=== PATIENT | male | born 1975 | race Caucasian/White ===

== ENCOUNTER 2019-10-10 17:02 | Observation (INO) | payer OTHER, SELFPAY ==
--- NOTE | ~2019-10-10 | US_ITS ---
US abdomen limited INDICATION: Right upper quadrant pain PROCEDURE: Realtime right upper abdominal ultrasound. COMPARISON: CT dated 10/10/2019 FINDINGS: The pancreas is normal without focal mass or pancreatic ductal dilation. Liver echotexture is increased, consistent with fatty infiltration. There is normal directional flow in the portal ve in. There is gallbladder wall thickening. No pericholecystic fluid or gallstones. Common bile duct measu res 5.1 mm. No sonographic Mora's sign. IMPRESSION: 1: Mild gallbladder wall thickening, nonspecific. 2: Hepatic steatosis. Reviewed, dictated and finalized at location A.
--- NOTE | ~2019-10-10 | CT_ITS ---
EXAMINATION: CT abdomen pelvis w con EXAM DATE: 10/10/2019 18:13 INDICATION: Nausea vomiting and epigastric pain. TECHNIQUE: Spiral CT of the abdomen and pelvis was performed following intravenous injection of 100 m L Omnipaque 350. Axial, coronal and sagittal images were reviewed. The dose-length product (DLP) fo r this examination was 663.56 mGy-cm. The exposure was tailored according to patient size (auto mA e xposure control), and iterative reconstruction (ASIR) was used as additional dose reduction technique . There is no prior study for comparison. FINDINGS: The liver, spleen, adrenal glands and pancreas are unremarkable. Gallbladder is unremarkab le. No biliary obstruction. Portal and splenic veins are patent. Kidneys enhance symmetrically. T here is no hydronephrosis. The prostate is unremarkable. The bladder is unremarkable. There is no retroperitoneal or pelvic lymphadenopathy. The appendix is normal. The stomach and small bowel are unremarkable. There is expected amount of c olonic stool. No free intraperitoneal gas. The heart is normal in size. There are no pericardial or pleural effusions. The lung bases are unremarkable. The bones are unremarkable. IMPRESSION: 1. No acute intra-abdominal findings. Reviewed, dictated and finalized at location A.
[2019-10-10 17:11] VITALS: BP 150/98; PULSE 91; RESP 18; O2SAT 100
[2019-10-10 17:13] VITALS: BP 150/98; PULSE 92; RESP 21; O2SAT 100
--- NOTE | 2019-10-10 17:34 | ECG_ITS ---
Measurements Intervals [place] Rate: 66 P: 56 SC: 167 QRS: 43 QRSD: 113 T: 38 QT: 390 QTc: 411 Interpretive Statements SINUS RHYTHM INTRAVENTRICULAR CONDUCTION DELAY BORDERLINE ECG Electronically Signed On 10-10-2019 19:33:39 CDT by Alexi Booth D.O.
--- NOTE | 2019-10-10 17:34 | ED.NAVMDI ---
HPI - Nausea/Vomiting/Diarrhea General Chief complaint: Nausea/Vomiting/Diarrhea Stated complaint: N/V ABD PAIN [id number] Time Seen by Provider: 10/10/19 17:10 History of Present Illness HPI Narrative: Patient is a 44-year-old male who presents ER with sudden onset nausea and vomiting. Gradually increasing since 1430 this afternoon. Associated with discomfort in the epigastrium and bilateral upper quadrants. No radiation of pain within the abdomen. No fevers or chills or sweats. No chest pain or dizziness. Had similar symptoms 2 to 3 days ago but not as intense and lasted for very short amount of time. Patient is concerned it could be related to his gallbladder. Has not had biliary colic in the past. No alleviating factors that he is found. Related Data Allergies Allergy/AdvReac Type Severity Reaction Status Date / Time No Known Allergies Allergy Unverified 05/06/19 07:07 Review of Systems Review of Systems: All systems reviewed & are unremarkable except as noted in HPI and below Constitutional: Constitutional: Denies chills, Denies fever(s) and Denies weakness Cardiovascular: Cardiovascular: Denies chest pain and Denies radiating jaw, neck or arm pain Respiratory: Respiratory: Denies cough, Denies dyspnea and Denies wheezing Gastrointestinal: Gastrointestinal: Reports abdominal pain, Denies heartburn, Denies diarrhea, Reports nausea and Reports vomiting Genitourinary: Genitourinary: Denies dysuria and Denies urinary frequency Integumentary/Breasts: Comments: Sweating clammy PMFSH Past Medical History Medical History (Updated 10/10/19 @ 19:16 by Ze Girard MD) Anxiety Hyperlipidemia Surgical History Surgical History (Updated 05/06/19 @ 13:15 by Fiordaliza Farnsworth NP) History of appendectomy (~1989) Social History Social History (Updated 10/10/19 @ 18:15 by Ze Girard MD) Smoking status: Never smoker Gender identity (if verbalized by the patient): Male Exam Narrative: Exam Narrative: GENERAL: Uncomfortable-appearing, well-nourished, and sitting in the bed holding an emesis bag HEAD: Normocephalic, atraumatic. ENT: Mucous membranes moist. CHEST: Clear to auscultation. No respiratory distress. HEART: Regular rate and rhythm. Normal peripheral pulses. ABDOMEN: Soft, mild discomfort in the epigastrium bilateral upper quadrants with palpation but no rebound or guarding, negative Mora's sign, nondistended, normal active bowel sounds. EXTREMITIES: Normal range of motion. No edema. SKIN: Cool, moist, no rash. NEURO: Alert and oriented x3. Course Course Emergency Course: Admit to general surgery. Keep n.p.o. and give fluids and IV pain medication. Will order ultrasound for the morning. Vital Signs Vital signs: Vital Signs Pulse Rate 91 10/10/19 17:11 Respiratory Rate 18 10/10/19 17:11 Blood Pressure 150/98 H 10/10/19 17:11 Pulse Oximetry 100 10/10/19 17:11 Pulse Rate 92 10/10/19 17:13 Respiratory Rate 21 H 10/10/19 17:13 Blood Pressure 150/98 H 10/10/19 17:13 Pulse Oximetry 100 10/10/19 17:13 MDM - Nausea/Vomiting/Diarrhea Lab Data Result diagrams: 10/10/19 17:42 10/10/19 17:42 Labs: Lab Results 10/10/19 10/10/19 10/10/19 Range/Units 17:42 17:42 19:03 WBC 12.7 H (4.5-10.0) K/mm3 RBC 5.17 (4.6-6.20) M/mm3 Hgb 16.1 (14.0-18.0) g/dL Hct 46.0 (42.0-52.0) % MCV 89.0 (80-100) fl MCH 31.1 (26-34) pg MCHC 35.0 (32-36) g/dl RDW 11.9 (11.5-14.5) % Plt Count 340 (150-375) k/mm3 MPV 8.7 (7.4-10.4) fl Immature Gran % (Auto) 0.3 (0-0.5) % Neut % (Auto) 57.8 (45.5-73.1) % Lymph % (Auto) 36.8 (18.3-44.2) % [place]w % (Auto) 4.2 (2.6-8.5) % Eos % (Auto) 0.6 (0-4.4) % Baso % (Auto) 0.3 (0.2-1.2) % Lymph # (Auto) 4.68 H (0.9-3.2) K/mm3 [place]omew # (Auto) 0.5 (0.1-0.6) K/mm3 Eos # (Auto) 0.1 (0-0.3) K/mm3 Baso # (Auto) 0.0 (0.0-0.1) K/mm
[2019-10-10 17:47] LABS: Basophils Percent Auto 0.3 % (0.2-1.2); Eosinophils Absolute Auto 0.1 K/mm3 (0-0.3); Eosinophils Percent Auto 0.6 % (0-4.4); Hemoglobin 16.1 g/dL (14.0-18.0); Immature Granulocyte Absolute 0.04 K/mm3 (0.00-0.031); Immature Granulocyte Percent A 0.3 % (0-0.5); Lymphocytes Absolute Auto 4.68 K/mm3 (0.9-3.2); Lymphocytes Percent Auto 36.8 % (18.3-44.2); Mean Corpuscular Hemoglobin 31.1 pg (26-34); Mean Platelet Volume 8.7 fl (7.4-10.4); Monocytes Absolute Auto 0.5 K/mm3 (0.1-0.6); Monocytes Percent Auto 4.2 % (2.6-8.5); Neutrophils Absolute Auto 7.3 K/mm3 (1.3-6.7); Neutrophils Percent Auto 57.8 % (45.5-73.1); Platelet Count Result 340 k/mm3 (150-375); Red Blood Count 5.17 M/mm3 (4.6-6.20); Red Cell Distribution Width 11.9 % (11.5-14.5); White Blood Count 12.7 K/mm3 (4.5-10.0)
[2019-10-10] MEDS: MORPHINE SULFATE 4 MG/ML INJ IV PUSH ×3 (17:53→20:10)
[2019-10-10] MEDS: SODIUM CHLORIDE 0.9% IV 1,000 ML 999 ML IV CONT (17:53)
[2019-10-10] MEDS: ONDANSETRON INJ 4 MG/2 ML VIAL IV PUSH (17:53)
--- NOTE | 2019-10-10 17:53 | PC.NURSE ---
Keyboard not working in RM 12. Unable to document medication administration in room.
[2019-10-10 17:59] LABS: Alanine Aminotransferase 48 U/L (4-50); Albumin Level 4.9 g/dL (3.5-5.1); Alkaline Phosphatase 105 U/L (38-126); Aspartate Amino Transferase 46 U/L (17-59); Bilirubin,Total 0.3 mg/dL (0.2-1.3); Blood Urea Nitrogen 14 mg/dL (9-20); Calcium 9.8 mg/dL (8.4-10.2); Carbon Dioxide 26 mmol/L (22-30); Chloride 100 mmol/L (98-107); Estimated CRCL calculation 88 ml/min; Estimated Glomerular Filt Rate > 60; Glucose 129 mg/dL (75-110); Lipase 68 U/L (23-300); Potassium 3.8 mmol/L (3.4-5.0); Sodium 137 mmol/L (137-145)
[2019-10-10 18:11] LABS: Troponin I < 0.012 ng/mL (0.000-0.034)
[2019-10-10 19:13] LABS: Add Urine Microscopic? YES; Appearance Urine Clear (Clear); Bilirubin Urine Negative (Negative); Blood Urine Negative (Negative); Color Urine Yellow (Yellow); Glucose Urine UA Negative (Negative); Ketones Urine Trace mg/dL (Negative); Leukocyte Esterase Ur Negative LEU/UL (Negative); Mucus Urine Rare /lpf; Nitrate Urine Negative (Negative); Protein Urine Negative (Negative); RBC Urine 0-2 /hpf (0-2); Urobilinogen Urine Negative mg/dL (<2.0); WBC Urine 0-3 /hpf
[2019-10-10 19:16] LABS: Specific Grav Ur 1.035 (1.001-1.035)
[2019-10-10 19:19] VITALS: BP 145/83; PULSE 75; RESP 30; TEMP 36.8; O2SAT 97
--- NOTE | 2019-10-10 19:23 | PC.NURSE ---
Assumed care of pt at this time. report from DASHAWN Castañeda
[2019-10-10 19:49] VITALS: BP 144/87; PULSE 69; RESP 12; O2SAT 99
[2019-10-10 20:09] VITALS: BP 133/91; PULSE 75; RESP 18; TEMP 36.8; O2SAT 95; BMI 29.0
[2019-10-10] MEDS: SODIUM CHLORIDE 0.9% IV 1,000 ML 125 ML IV CONT (20:09)
--- NOTE | 2019-10-10 20:12 | ADMGEN ---
This patient, Jay Hobson, was admitted to 3 Med Surg Room 320-01. Patient/family oriented to hospital policies and general routines including ID bracelet, bed and alarms, visiting hours, pain management, procedures, bathroom and other care routines, personal items, smoking policy, room service/diet, and visiting hours. Valuables list has been completed. Information on how to activate the Rapid Response Team has been discussed. Patient/Family are encouraged to report perceived risks to care and to ask questions if they do not understand what they are told or what they should do.
[2019-10-10 22:00] VITALS: BP 149/86; PULSE 68; RESP 18; TEMP 37.1; O2SAT 97
[2019-10-11] VITALS (13 sets, daily range): BP systolic 90–150; BP diastolic 52–78; PULSE 67–714; RESP 16–25; TEMP 36.4–37.3; O2SAT 79–100
[2019-10-11] MEDS: SODIUM CHLORIDE 0.9% IV 1,000 ML 125 ML IV CONT (04:11)
--- NOTE | 2019-10-11 09:23 | PC.NURSE ---
Patient to surgery per bed.
--- NOTE | 2019-10-11 10:06 | SUR.PREOP ---
0945- spoke with dr. mansfield and he stated pt does not need a type and screen drawen in pre op area.
[2019-10-11] MEDS: IBUPROFEN IV 800 MG/200 ML 800 MG/200 ML BAG 400 MG IVPB (10:08)
[2019-10-11] MEDS: LACTATED RINGERS 1,000 ML 30 ML IV CONT ×2 (10:08→11:44)
--- NOTE | 2019-10-11 10:28 | WPDANESEPPF ---
Anes - Initial Pre Proc Eval Procedure: Operation Date: 10/11/19 16:15 Proposed Procedures p Laparoscopic Cholecystectomy, possible open - Simone Song DO Date/Time: 10/11/19 10:28 Surgeon: Simone Song DO Pre Op Diagnosis: Gallstones, RUQ pain Patient Data Age: 44 Gender: M Height: 5 ft 10 in Weight: 91.7 kg Last Vital Signs Temp 37.1 C 10/11/19 10:03 Pulse 79 10/11/19 10:03 Resp 20 10/11/19 10:03 BP 139/75 10/11/19 10:03 Pulse Ox 79 L 10/11/19 10:03 Allergies Allergy/AdvReac Type Severity Reaction Status Date / Time No Known Allergies Allergy Unverified 05/06/19 07:07 Home Medications Medication Instructions Recorded Confirmed Type escitalopram oxalate 10 mg tablet 10 mg PO DAILY #90 tablet 05/06/19 10/10/19 Rx Laboratory Tests 10/10/19 10/10/19 10/10/19 17:42 17:42 19:03 WBC 12.7 K/mm3 H K/mm3 (4.5-10.0) RBC 5.17 M/mm3 M/mm3 (4.6-6.20) Hgb 16.1 g/dL g/dL (14.0-18.0) Hct 46.0 % % (42.0-52.0) MCV 89.0 fl fl (80-100) MCH 31.1 pg pg (26-34) MCHC 35.0 g/dl g/dl (32-36) RDW 11.9 % % (11.5-14.5) Plt Count 340 k/mm3 k/mm3 (150-375) MPV 8.7 fl fl (7.4-10.4) Immature Gran % (Auto) 0.3 % % (0-0.5) Neut % (Auto) 57.8 % % (45.5-73.1) Lymph % (Auto) 36.8 % % (18.3-44.2) [place] % (Auto) 4.2 % % (2.6-8.5) Eos % (Auto) 0.6 % % (0-4.4) Baso % (Auto) 0.3 % % (0.2-1.2) Lymph # (Auto) 4.68 K/mm3 H K/mm3 (0.9-3.2) [place] # (Auto) 0.5 K/mm3 K/mm3 (0.1-0.6) Eos # (Auto) 0.1 K/mm3 K/mm3 (0-0.3) Baso # (Auto) 0.0 K/mm3 K/mm3 (0.0-0.1) Abs Immat Gran (auto) 0.04 K/mm3 H K/mm3 (0.00-0.031) Absolute Neuts (auto) 7.3 K/mm3 H K/mm3 (1.3-6.7) Absolute Nucleated RBC 0.0 K/mm3 K/mm3 (0.0-0.012) Nucleated RBC % 0.0 % % (0.0-0.2) Sodium 137 mmol/L mmol/L (137-145) Potassium 3.8 mmol/L mmol/L (3.4-5.0) Chloride 100 mmol/L mmol/L (98-107) Carbon Dioxide 26 mmol/L mmol/L (22-30) BUN 14 mg/dL mg/dL (9-20) Creatinine 1.00 mg/dL mg/dL (0.7-1.3) Estim Creat Clear Calc 88 ml/min ml/min Estimated GFR > 60 (59 - ) Glucose 129 mg/dL H mg/dL (75-110) Calcium 9.8 mg/dL mg/dL (8.4-10.2) Total Bilirubin 0.3 mg/dL mg/dL (0.2-1.3) AST 46 U/L U/L (17-59) ALT 48 U/L U/L (4-50) Alkaline Phosphatase 105 U/L U/L (38-126) Troponin I < 0.012 ng/mL ng/mL (0.000-0.034) Total Protein 8.0 g/dL g/dL (6.3-8.2) Albumin 4.9 g/dL g/dL (3.5-5.1) Lipase 68 U/L U/L (23-300) Urine Color Yellow (Yellow) Urine Appearance Clear (Clear) Urine pH 6.0 (5.0-9.0) Ur Specific [place] 1.035 (1.001-1.035) Urine Protein Negative mg/dL mg/dL (Negative) Urine Glucose (UA) Negative mg/dL mg/dL (Negative) Urine Ketones Trace mg/dL mg/dL (Negative) Ur Blood (Man) Negative (Negative) Urine Nitrate Negative (Negative) Urine Bilirubin Negative (Negative) Urine Urobilinogen Negative mg/dL mg/dL (<2.0) Leukocyte Esterase Rfl Negative JOSEPHINE/UL JOSEPHINE/UL (Negative) Urine RBC 0-2 /hpf /hpf (0-2) Urine WBC 0-3 /hpf /hpf Hyaline Casts 1-2 /lpf /lpf (None) Urine Mucus Rare /lpf /lpf Patient hx anesthesia problems: none Family hx anesthesia problems: none PMFSH Past Medical History Medical History (Updated 10/11/19 @ 10:28 by Thompson Abdalla MD) Anxiety Hyperlipidemia Overweight Surgical History Surgical History His
--- NOTE | 2019-10-11 10:29 | PM.IMHP ---
H&P: HPI History of Present Illness Chief complaint: Gallstones, RUQ pain Narrative: Jay Hobson is a 44 year old male who presented to the emergency department yesterday with complaints of right upper quadrant pain. He has had 2 episodes in the past week. Six days ago he noticed pain after eating a heavy meal. It seemed to be several hours after eating. It started out as a stitch in his side but then pain worsened and became more constant. He was feeling better after a couple days, but then yesterday the pain returned. This time it did not seem to be after any particular food that he ate. He continued to have constant pain and was also experiencing nausea. He has never experienced pain like this before. He denies any change in bowel habits or any fevers or chills. He does think he has a family history of gallbladder problems with his father. A CT in the emergency department showed evidence of a gallstone at the cystic duct or neck of the gallbladder. He was then admitted for further treatment. Review of Systems Review of Systems: All systems reviewed & are unremarkable except as noted in HPI and below Constitutional: Constitutional: Denies chills and Denies fever(s) Eyes: Eyes: Denies change in vision ENT: Denies hearing loss, Denies neck pain and Denies sore throat Cardiovascular: Cardiovascular: Denies chest pain and Denies dyspnea Respiratory: Respiratory: Denies cough, Denies dyspnea and Denies wheezing Gastrointestinal: Gastrointestinal: Reports as per HPI Genitourinary: Genitourinary: Denies hematuria and Denies dysuria Musculoskeletal: Musculoskeletal: Denies arthralgias, Denies joint swelling and Denies neck pain Allergic/Immunologic: Allergic/Immunologic: Denies wheezing [facility] Past Medical History Medical History Anxiety Hyperlipidemia Overweight Surgical History Surgical History History of appendectomy (~1989) Family History Family History Mother Ulcerative colitis Father Hypertension Father Diabetes mellitus Social History Social History Smoking status: Never smoker Alcohol intake: former Substance use: never Gender identity (if verbalized by the patient): Male Spiritual care concerns: No Meds Home Medications and Allergies Home Medications Medication Instructions Recorded Confirmed Type escitalopram oxalate 10 mg tablet 10 mg PO DAILY #90 tablet 05/06/19 10/10/19 Rx Allergies Allergy/AdvReac Type Severity Reaction Status Date / Time No Known Allergies Allergy Unverified 05/06/19 07:07 Vital Signs Vital Signs - 24 hr 10/10/19 17:11 10/10/19 17:13 10/10/19 19:19 Temperature 36.8 C Pulse Rate 91 92 75 Respiratory Rate 18 21 H 30 H Blood Pressure 150/98 H 150/98 H 145/83 H Pulse Oximetry 100 100 97 10/10/19 19:49 10/10/19 20:09 10/10/19 22:00 Temperature 36.8 C 37.1 C Pulse Rate 69 75 68 Respiratory Rate 12 18 18 Blood Pressure 144/87 H 133/91 H 149/86 H Pulse Oximetry 99 95 97 10/11/19 02:16 10/11/19 06:00 10/11/19 10:03 Temperature 37.3 C 36.9 C 37.1 C Pulse Rate 93 76 79 Respiratory Rate 18 18 20 Blood Pressure 150/62 H 132/78 139/75 Pulse Oximetry 98 95 79 L Exam Const: General: alert; No acute distress Orientation/consciousness: patient oriented x3 Limitations: no limitations HENMT: Head: normocephalic and atraumatic Ears: hearing grossly normal bilaterally General nose exam: Normal external nose present and Normal nares present Mouth: Yes Normal oral and palatal mucosa present and Yes moist mucous membranes Eyes: General: appearance normal, both eyes and all related structures Conjunctivae: conjunctivae normal Sclera: sclerae normal Pupils: Equal, round and reactive pupils present EOM: E
[2019-10-11] MEDS: ceFAZolin 2 GM/D5W 50 ML 2 GM/50 ML BAG IVPB (10:37)
[2019-10-11] MEDS: BUPIVACAINE/EPINEPHRINE 0.5% 30 ML VIAL INFILTRATE (11:00)
--- NOTE | 2019-10-11 11:45 | PM.PROC ---
Procedure Note - Detailed Date of procedure: 10/11/19 Pre-op diagnosis: Acute calculous cholecystitis Post-op diagnosis: same Procedure performed: Laparoscopic Cholecystectomy Description of procedure: Procedure as well as risks, benefits, and alternatives were discussed with patient. Written consent was obtained and placed in chart prior to procedure. The patient was brought back to surgical suite. Patient was placed in supine position on operating table. Time-out was done to confirm patient and procedure. Patient was then intubated by the anesthesia department. Abdomen was prepped and draped in sterile fashion using chlorhexidine prep. 0.5% bupivacaine with epinephrine was infiltrated at each site of incision. A 5 millimeter incision was made near the umbilicus, and a 5 millimeter Optiview trocar was advanced through the abdominal layers under direct visualization. Once inside the abdominal cavity, carbon dioxide was insufflated to create a pneumoperitoneum. The camera was inserted and the abdomen was inspected. No immediate abnormalities were identified. The patient was placed in reverse Trendelenburg position and rotated slightly to the left. An 11 millimeter incision was made in the subxiphoid region, and an 11 millimeter trocar was inserted under direct visualization. Two 5 millimeter incisions were made in the right upper quadrant, and two 5 millimeter trocars were inserted under direct visualization. The gallbladder was identified and grasped at the fundus and retracted superiorly. It was then grasped at the infundibulum retracted laterally. Careful dissection around the neck of the gallbladder was performed using blunt dissection with a [place] grasper and hook electrocautery. The cystic duct was identified, and a window was created behind it. The cystic artery was also identified and a window was created behind it. The critical view of safety was identified, visualizing the cystic duct running directly into the neck of the gallbladder, and the cystic artery running directly into the wall of the gallbladder. A 5 millimeter clip cattle knocker was then used to place 2 clips proximally and 1 clip distally on both the cystic duct and cystic artery. They were then both transected using endoscopic scissors. Once safely away from the magdi hepatitis, the gallbladder was dissected free from the liver bed using hook electrocautery. Hemostasis was achieved along the way. The gallbladder was removed completely and then removed through the subxiphoid port. The liver bed was then inspected. Hemostasis appeared adequate, and our clips appeared secure. The area was gently irrigated with sterile saline. No other abnormalities were seen. The patient was flattened out in bed, and 1 final inspection was made around the abdominal cavity. The subxiphoid port was removed, and a Kartik Lino cone was used to approximate the fascia with an 0-Vicryl simple interrupted suture. The remaining ports were then removed under direct visualization, the camera was removed, and the pneumoperitoneum was released. The skin of the incisions was approximated using 4-0 Monocryl subcuticular sutures. Exofin glue was applied on top. The patient was then awakened from anesthesia, extubated, and transferred to recovery. Anesthesia: GETA and local (0.5% bupivicaine with epi) Surgeon: Simone Song DO Estimated blood loss (mL): 5 Drains: No Packing: No Pathology: yes Complications: No immediate complications Condition: stable (Patient tolerated procedure well, and is currently resting comfortably in recovery.) Disposition: same day Findings: Patient had evidence of acute cholecystitis with hyperemia and edema of the gallbladder wall. The gallbladder was tense and difficult to grasp. It was aspirated with a laparoscopic aspirating needle. The cystic duct appeared normal in size. No other abnormalities were noted. Gallbladder was removed and sent to lab for pathology.
--- NOTE | 2019-10-11 12:16 | PM.DS ---
DS: Admitting Diagnosis Admitting Diagnosis Admitting Diagnosis: Calculus of gallbladder with acute cholecystitis without obstruction DS: Discharge Diagnosis Discharge Diagnosis (1) Acute calculous cholecystitis: Code(s): K80.00 - Calculus of gallbladder with acute cholecystitis without obstruction Status: Acute DS: Summary Hospital Course Reason for hospitalization: Acute calculous cholecystitis Hospital Course: 44-year-old man presented to the emergency department 10/10/2019 with right upper quadrant pain with nausea. He had had 2 episodes like this over the past week. This current episode had been lasting several hours and was not improving with time. The 1st attack of pain he had 6 days ago was noted after eating a heavy meal. He denies any particular food that triggered the 2nd attack. His white blood count was slightly elevated but liver enzymes were normal. CT abdomen and pelvis showed evidence of a gallstone near the neck or cystic duct of the gallbladder. Patient was admitted for further treatment. On 10/11/2019 a gallbladder ultrasound was obtained which showed evidence of gallbladder wall thickening. Discussions were made with the patient about treatment options and decision was made to proceed with urgent laparoscopic cholecystectomy, possible open. Surgery was performed on 10/11/2019 and was uncomplicated. He was returned to the surgical floor postoperatively. His diet and activity were advanced as tolerated. Once his vitals were stable, pain controlled, he was tolerating a low-fat diet, and he was ambulating in the halls, he was discharged home. Status at Discharge Functional status at discharge: independent ambulation Overall status at discharge: patient is progressing back to baseline Time Spent with Patient Time attestation: Total time spent providing and/or coordinating discharge services: Time spent: Less than 30 minutes DS: Data Data Completed and Pending Pending studies at discharge: Pending at discharge 10/11/19 10:58 Surgical [PTH] Routine Labs on day of discharge: Labs from last 24 hours 10/10/19 10/10/19 10/10/19 19:03 17:42 17:42 WBC 12.7 H RBC 5.17 Hgb 16.1 Hct 46.0 MCV 89.0 MCH 31.1 MCHC 35.0 RDW 11.9 Plt Count 340 MPV 8.7 Immature Gran % (Auto) 0.3 Neut % (Auto) 57.8 Lymph % (Auto) 36.8 [place] % (Auto) 4.2 Eos % (Auto) 0.6 Baso % (Auto) 0.3 Lymph # (Auto) 4.68 H [place] # (Auto) 0.5 Eos # (Auto) 0.1 Baso # (Auto) 0.0 Abs Immat Gran (auto) 0.04 H Absolute Neuts (auto) 7.3 H Absolute Nucleated RBC 0.0 Nucleated RBC % 0.0 Sodium 137 Potassium 3.8 Chloride 100 Carbon Dioxide 26 BUN 14 Creatinine 1.00 Estim Creat Clear Calc 88 Estimated GFR > 60 Glucose 129 H Calcium 9.8 Total Bilirubin 0.3 AST 46 ALT 48 Alkaline Phosphatase 105 Troponin I < 0.012 Total Protein 8.0 Albumin 4.9 Lipase 68 Urine Color Yellow Urine Appearance Clear Urine pH 6.0 Ur Specific [place] 1.035 Urine Protein Negative Urine Glucose (UA) Negative Urine Ketones Trace Ur Blood (Man) Negative Urine Nitrate Negative Urine Bilirubin Negative Urine Urobilinogen Negative Leukocyte Esterase Rfl Negative Urine RBC 0-2 Urine WBC 0-3 Hyaline Casts 1-2 Urine Mucus Rare Imaging Attestation: I personally reviewed and interpreted this imaging study as follows: ( Small gallstone noted at gallbladder neck or cystic duct) Radiologist's impression: ITS Impressions Abdomen/Pelvis CT 10/10/19 18:18 IMPRESSION: 1. No acute intra-abdominal findings. Abdomen Ultrasound 10/11/19 08:37 IMPRESSION: 1: Mild gallbladder wall thickening, nonspecific. 2: Hepatic steatosis. Discharge Plan Discharge Attending physician on discharge: Simone Song Discharging Clinician: Simone Song Patient
--- NOTE | 2019-10-11 13:12 | PC.NURSE ---
Patient returned from surgery via bed.
== END 2019-10-11 16:12 | disposition home or self-care (01) ==
LOC: ANHED 19:17 → ANH3MEDSUR 19:30
PROVIDERS: Admitting Provider Surgery; Emergency Provider Emergency Medicine; PCP Family Medicine; Visit Provider Surgery
PROC: 0FT44ZZ Resection of Gallbladder, Percutaneous Endoscopic Approach (ICD-10-PCS; CPT 47562; principal; 2019-10-11 16:15)
DX: K80.00 Calculus of gallbladder with acute cholecystitis without obstruction (principal); F41.9 Anxiety disorder, unspecified; E78.5 Hyperlipidemia, unspecified; E66.3 Overweight; Z68.29 Body mass index [BMI] 29.0-29.9, adult
CPT/HCPCS: 47562; 36415; 74177; 76705; 80053; 81001; 83690; 84484; 85025; 88304; 93005; 96360; 96361; 96374; 96375; 96376; 99285; G0378; J0330; J0690; J1100; J1741; J2250; J2270; J2405; J2704; J3010; J7030; J7120; Q9967

== ENCOUNTER 2021-10-09 20:41 | Emergency (ER) | payer OTHER, SELFPAY ==
--- NOTE | ~2021-10-09 | XR_ITS ---
EXAMINATION: XR chest 1V portable Exam Date/Time: 10/09/2021 21:30 CDT HISTORY: chest pain, HIGH BP TODAY, NO CARDIAC HX Comparison: None available. RESULT: Lines, tubes, and devices: None. Lungs and pleura: Clear. Cardiomediastinal silhouette: Normal cardiomediastinal silhouette. Other: No acute osseous or upper abdominal finding. IMPRESSION: No acute cardiopulmonary process. Reviewed, dictated and finalized at location K.
[2021-10-09 21:13] VITALS: BP 155/109; PULSE 103; RESP 18; TEMP 36.6; O2SAT 100
--- NOTE | 2021-10-09 21:19 | ECG_ITS ---
Measurements Intervals [place] Rate: 81 P: 55 NM: 165 QRS: 28 QRSD: 94 T: 32 QT: 356 QTc: 413 Interpretive Statements SINUS RHYTHM NORMAL ECG COMPARED TO ECG 10/10/2019 18:00:00 NO SIGNIFICANT CHANGES Electronically Signed On 10-10-2021 7:26:19 CDT by Edgardo Cruz M.D.
[2021-10-09 21:57] LABS: Basophils Percent Auto 0.2 % (0.2-1.2); Eosinophils Absolute Auto 0.2 K/mm3 (0-0.3); Eosinophils Percent Auto 2.1 % (0-4.4); Hemoglobin 14.3 g/dL (14.0-18.0); Immature Granulocyte Absolute 0.01 K/mm3 (0.00-0.031); Immature Granulocyte Percent A 0.1 % (0-0.5); Lymphocytes Absolute Auto 4.58 K/mm3 (0.9-3.2); Lymphocytes Percent Auto 50.4 % (18.3-44.2); Mean Corpuscular Volume 91.1 fl (80-100); Mean Platelet Volume 8.5 fl (7.4-10.4); Monocytes Absolute Auto 0.4 K/mm3 (0.1-0.6); Monocytes Percent Auto 4.5 % (2.6-8.5); Neutrophils Absolute Auto 3.9 K/mm3 (1.3-6.7); Neutrophils Percent Auto 42.7 % (45.5-73.1); Platelet Count Result 286 k/mm3 (150-375); Red Blood Count 4.61 M/mm3 (4.6-6.20); Red Cell Distribution Width 11.9 % (11.5-14.5); White Blood Count 9.1 K/mm3 (4.5-10.0)
[2021-10-09 22:07] LABS: Anion Gap 6 mmol/L (8-16); Blood Urea Nitrogen 13 mg/dL (9-20); Calcium 8.8 mg/dL (8.4-10.2); Carbon Dioxide 30 mmol/L (22-30); Chloride 101 mmol/L (98-107); Estimated CRCL calculation 95 ml/min; Estimated Glomerular Filt Rate > 60; Glucose 108 mg/dL (65-110); Potassium 3.7 mmol/L (3.4-5.0); Sodium 137 mmol/L (137-145)
[2021-10-09 22:14] LABS: D Dimer 0.26 ug/mL (<0.48)
[2021-10-09 22:18] LABS: Troponin I < 0.012 ng/mL (0.000-0.034)
--- NOTE | 2021-10-09 22:23 | ED.CHESTPAIN ---
HPI - Chest Pain General Chief Complaint: Recheck/Abnormal Lab/Rx Stated Complaint: elevated bp at home Time Seen by Provider: 10/09/21 21:22 History of Present Illness HPI narrative: 46-year-old male with history of anxiety presents here because he states that he checks his blood pressure at home and it seems higher than usual, he is also saying that for the last day or 2 he has been feeling some chest pressure and difficulty breathing and nausea, it feels somewhat like his anxiety but he cannot be sure, he states that his father had a heart attack when he was age 52. No focal numbness or weakness. Related Data Home Medications Medication Instructions Recorded Confirmed No Home Medications 10/09/21 Allergies Allergy/AdvReac Type Severity Reaction Status Date / Time No Known Allergies Allergy Verified 10/09/21 21:16 Review of Systems Review of Systems: CONST: No fever. HEENT: No sore throat C/V: Chest pressure RESP: Mild difficulty breathing GI: Nausea : No dysuria. M/S: No joint pain. SKIN: No rash. NEURO: [No focal numbness or weakness] PSYCH: Anxiety PMFSH Past Medical History Medical History Anxiety Hyperlipidemia Overweight Surgical History Surgical History History of appendectomy (~1989) Hx laparoscopic cholecystectomy Family History Family History Mother Ulcerative colitis Father Hypertension Father Diabetes mellitus Father Hypertension Family history of coronary artery disease Mother Family history of malignant neoplasm of breast in first degree relative Social History Social History Smoking status: Never smoker Alcohol intake: former Substance use: never Gender identity (if verbalized by the patient): Male Spiritual care concerns: No Exam Narrative: EXAMINATION OF ORGAN SYSTEMS/BODY AREAS: Constitutional: Vital signs per nursing GENERAL:[No acute distress, non-toxic appearing.] HEAD: Normal with no signs of head trauma. EYES: EOMI, conjunctiva normal ENT: Hearing grossly intact LUNGS: Nonlabored breathing. HEART: Tachycardic ABD: [Soft], [tender to palpation] EXT: Normal range of motion, no pulse deficits, both hands well perfused SKIN: [No rashes or lesions.] NEURO: [Alert and oriented x 3. No gross focal sensory or strength deficits.] PSYCH: Normal affect Course Vital Signs Vital signs: Vital Signs Temperature 97.9 F 10/09/21 21:13 Pulse Rate 103 H 10/09/21 21:13 Respiratory Rate 18 10/09/21 21:13 Blood Pressure 155/109 H 10/09/21 21:13 Pulse Oximetry 100 10/09/21 21:13 Oxygen Delivery Room Air 10/09/21 21:13 Temperature 97.9 F 10/09/21 21:13 Pulse Rate 103 H 10/09/21 21:13 Respiratory Rate 18 10/09/21 21:13 Blood Pressure 155/109 H 10/09/21 21:13 Pulse Oximetry 100 10/09/21 21:13 Oxygen Delivery Room Air 10/09/21 21:13 MDM - Chest Pain MDM Narrative Medical decision making narrative: 46-year-old male with history of anxiety presents here with feeling of chest pressure, difficulty breathing, nausea, and elevated blood pressure at home. Vital signs within acceptable limits, exam shows nonlabored respiration although patient does appear quite anxious, I will obtain chest pain work-up here. All labs including D-dimer and troponin are negative, chest x-ray is normal, EKG normal, patient is reassured and urged to follow-up with his primary care doctor. Return precautions provided Lab Data Result diagrams: 10/09/21 21:51 10/09/21 21:51 Labs: Lab Results 10/09/21 10/09/21 10/09/21 Range/Units 21:51 21:51 21:51 WBC 9.1 (4.5-10.0) K/mm3 RBC 4.61 (4.6-6.20) M/mm3 Hgb 14.3 (14.0-18.0) g/dL Hct 42.0 (42.0-52.0) % MCV 91.1 (80-100) fl MCH 31.0 (2
[2021-10-09 22:35] VITALS: BP 143/94; PULSE 80; RESP 13; O2SAT 100
== END 2021-10-09 22:36 | disposition home or self-care (01) ==
PROVIDERS: Emergency Provider Emergency Medicine; PCP Nurse Practitioner
DX: F41.9 Anxiety disorder, unspecified (principal); R07.89 Other chest pain; E66.3 Overweight; Z68.28 Body mass index [BMI] 28.0-28.9, adult
CPT/HCPCS: 36415; 71045; 80048; 84484; 85025; 85380; 93005; 99284